=== PATIENT | male | born 1990 | race Hispanic/Latino ===

== ENCOUNTER 2022-07-14 21:50 | Emergency (ER) | payer SELFPAY ==
[~2022-07-14] VITALS: Ht 167.6 cm; Wt 68.2 kg
[2022-07-14 23:44] LABS: URINE BILIRUBIN - DIPSTICK NEGATIVE (NEGATIVE); URINE BLOOD DIPSTICK TRACE-INTACT (NEGATIVE); URINE COLOR YELLOW; URINE GLUCOSE - DIPSTICK NEGATIVE (NEGATIVE); URINE KETONE NEGATIVE (NEGATIVE); URINE LEUK ESTERASE TRACE (NEGATIVE); URINE PROTEIN - DIPSTICK NEGATIVE (NEG-TRACE); URINE UROBILINOGEN - DIPSTICK 0.2 E.U./dL (0.2)
[2022-07-14 23:53] LABS: URINE NITRITE - DIPSTICK NEGATIVE (Negative)
[2022-07-15] MEDS ORDERED: CIPROFLOXACN500 MG PO (00:09)
[2022-07-15 01:16] VITALS: BP 130/78
== END 2022-07-15 01:16 | disposition home or self-care (01) | DRG 690 ==
LOC: ED 21:50
PROVIDERS: Emergency Medicine
DX: N34.2 Other urethritis (principal); Z20.2 Contact with and (suspected) exposure to infections with a predominantly sexual mode of transmission